=== PATIENT | male | born 1960 | race Caucasian/White ===

== ENCOUNTER 2023-04-07 07:37 | Outpatient (RCR) | payer OTHER, SELFPAY | END 2023-04-07 23:59 | disposition home or self-care (01) | LOC: RST 07:37 | PROVIDERS: ATTENDING PHYSICIAN Otolaryngology; PRIMARYCARE PHYSICIAN Family Medicine | DX: J18.9 Pneumonia, unspecified organism (principal); R13.19 Other dysphagia; J44.9 Chronic obstructive pulmonary disease, unspecified; R13.12 Dysphagia, oropharyngeal phase | CPT/HCPCS: 92610 ==

== ENCOUNTER → 2023-04-15 08:01 | Outpatient (REF) | payer OTHER, SELFPAY | LOC: DHCBC MAIN 08:01 | PROVIDERS: ATTENDING PHYSICIAN Internal Medicine Cardiovascular Disease; FAMILY PHYSICIAN Family Medicine | DX: R07.9 Chest pain, unspecified (principal); R06.02 Shortness of breath; I77.810 Thoracic aortic ectasia | CPT/HCPCS: 93306 ==

== ENCOUNTER 2023-05-11 20:02 | Emergency (ER) | payer OTHER, SELFPAY ==
[2023-05-11 20:03] VITALS: BP 160/92
[2023-05-11] MEDS: ZOFRAN ODT (ORALLY DISINTEGRATING) 4 MG PO (20:08)
[2023-05-11 20:22] LABS: % Basophils 0.7 % (0-2); % Immature Granulocytes 0.7 % (0-0.5); % Lymphocytes 21.8 % (20.5-51.1); % Neutrophils 67.8 % (42.2-75.2); Absolute Basophils 0.1 10^3/uL (0-0.2); Absolute Eosinophils 0.1 10^3/uL (0-0.7); Absolute Immature Granulocytes 0.1 10^3/uL (0-0.05); Absolute Lymphocytes 2.5 10^3/uL (1.2-3.4); Absolute Monocytes 0.9 10^3/uL (0.1-0.6); Absolute Neutrophils 7.7 10^3/uL (1.4-6.5); Hematocrit 43.8 % (39.0-52.0); Hemoglobin 14.8 g/dL (13.0-18.0); Mean Corp Hgb Conc. 33.8 g/dL (33.0-37.0); Mean Corpuscular Hgb 31.7 pg (27.0-31.0); Mean Corpuscular Volume 93.8 fL (80.0-94.0); Mean Platelet Volume 9.9 fL (7.4-10.4); Nucleated Red Blood Cells % 0 % (-); Platelet Count 231 10^3/uL (130-400); Red Blood Cell Count 4.67 10^6/uL (4.70-6.10); Red Cell Dist. Width 13.8 % (11.5-14.5); White Blood Cell Count 11.4 10^3/uL (4.8-10.8)
[2023-05-11 20:47] LABS: Blood Urea Nitrogen 17 mg/dl (9-20); Calcium 9.5 mg/dl (8.4-10.2); Carbon Dioxide 27 mmol/L (22-30); Chloride 101 mmol/L (98-107); Glucose 113 mg/dl (70-99); Lipase 915 U/L (23-300); Sodium 135 mmol/L (135-145); eGFR > 60.00
[2023-05-11 21:35] LABS: Potassium 4.2 mmol/L (3.5-5.1)
--- NOTE | 2023-05-11 22:21 | ED.GENMED ---
History of Present Illness
<ALANNAH Lakhani - Last Filed: 05/11/23 22:34>
General
Chief Complaint: Abdominal Pain
Source: patient
Exam Limitations: none
Time Seen by Provider: 05/11/23 22:09
Nursing documentation reviewed up to this point in time: agreed with
Travel History
Have you had any contact with someone who has COVID-19?: No
Do you have any symptoms of coronavirus? Fever > 100 degrees, chills, cough, shortness of breath, sore throat, loss of taste or smell, muscle aches, or headache?: No
History of Present Illness
History of Present Illness:
63 y/o M presents to ED complaining of abdominal pain that began at 1700 and last about 3 hours. Patient states the pain has now resolved. He reported the pain was constant in the center of his abdomen and was rated 10/10. He reports the pain
started after he had dinner which consisted of enoc stew from [place]. Patient reported the pain was so intense he was not able to take deep breaths. The pain did not radiate anywhere. Patient also reported associated nausea and 1 episode of foaming
white vomit. He reports both have since resolved. Patient last BM this afternoon. Patient denies fever, chills, constipation, diarrhea, chest pain, back pain, or palpitations. Patient has history of extensive GI surgeries. Last surgery a few years
ago per .
If applicable-neuro sx onset
Onset of symptoms known: Yes
Date of onset of symptoms: 05/11/23
Time of onset of symptoms: 17:00
Past History
<ALANNAH Lakhani - Last Filed: 05/11/23 22:34>
Past History
ED Past Medical History: Asthma, COPD, HTN, Hypothyroidism, Psychiatric, Other (Chronic back pain/narcotic dependence, hypoxic respiratory failure, obstructive sleep apnea, PNA, Hypoglycemia) and Other (chronic CUCA, on triple antibiotic tx)
ED Past Surgical History: Bowel resection (, 1976 with colostomy and then reversal, gastric bypass 2005), Orthopedic (Back surgery, right leg suzette placed) and Other (Gastric bypass 2005, multiple hernia repairs, Lung Hernia)
Social History
Tobacco: Former smoker
Alcohol: Former
Drug: None
Personal:
Living: with family
Employment: Disabled
Family History
Family History: Other (Noncontributory)
Review of Systems
<ALANNAH Lakhani - Last Filed: 05/11/23 22:34>
Review of Systems
All Other Systems: ROS reviewed and negative except as documented in HPI and ROS
Constitutional: Reports no symptoms
EENT: Reports no symptoms
Respiratory: Reports no symptoms
Cardiac: Reports no symptoms
ABD/GI: Reports abdominal pain, nausea and vomiting
: Reports no symptoms
Musculoskeletal: Reports no symptoms
Skin: Reports no symptoms
Neurological: Reports no symptoms
Endocrine: Reports no symptoms
Hematologic/Lymphatic: Reports no symptoms
Psychiatric: Reports no symptoms
Phy Exam
<ALANNAH Lakhani - Last Filed: 05/11/23 22:34>
General Physical Exam
General Presentation: well appearing and no apparent distress
General age: appears stated age
General Skin: warm and dry
General Habitus: normal
General Mental: alert
General Hydration: appears well hydrated
ENT Exam
ENT Exam: EOMI, pharynx normal and neck supple
Cardiovascular Exam
Cardiovascular Exam: regular rate/rhythm, no edema, no gallop and no murmur
Pulmonary Exam
Pulmonary Exam: lungs clear, no respiratory distress, no rales, no crackles and no rhonchi
Gastrointestinal Exam
Gastrointestinal Exam: normal bowel sounds, non tender, soft, non distended, no cva tenderness and surgical scar (surgical scar in center of abdomen secondary to hernia, R side with pain pump for back pain)
Neurological Exam
Neurological Exam: alert and oriented x3
Skin Exam
Skin Exam: normal color, warm/dry and no rash
Psychiatric Exam
Psychiatric Exam: normal mood/affect
Course
<SofiaALANNAH Reis - Last Filed: 05/11/23 22:34>
Orders/Labs/Results
Orders:
Orders
05/11/23 20:07
Ondansetron Orally Disint [Zofran Odt (Orally Disintegrating)] 4 mg .ROUTE .STK-MED ONE
05/11/23 20:08
Ondansetron Orally Disint [Zofran Odt (Orally Disintegrating)] 4 mg PO NOW STA
05/11/23 20:16
Basic Metabolic Panel Urgent
Complete Blood Count/With Diff Urgent
Lipase Urgent
05/11/23 21:16
Lzmoa-Kmas-Zwdvxyn Urgent
Potassium Urgent
05/11/23 22:40
US Abdomen Complete/Upper Urgent
Comment:
Reason For Exam: acute upper abd pain N/V, elevated lipase
05/11/23 23:38
Add On- LAB Urgent
Tests Added?: LFT's
Abnormal Lab Results
05/11/23
20:16
WBC 11.4 H 10^3/uL
(4.8-10.8)
RBC 4.67 L 10^6/uL
(4.70-6.10)
MCH 31.7 H pg
(27.0-31.0)
Abs Immat Gran (auto) 0.1 H 10^3/uL
(0-0.05)
Absolute Neuts (auto) 7.7 H 10^3/uL
(1.4-6.5)
Absolute Monos (auto) 0.9 H 10^3/uL
(0.1-0.6)
Immature Gran % 0.7 H %
(0-0.5)
Glucose 113 H mg/dl
(70-99)
Lipase 915 H U/L
(23-300)
05/11/23 20:16
05/11/23 21:16
Vital Signs
Initial and Last Documented VS:
Initial Vital Signs
Pulse Resp BP Pulse Ox
66 22 160/92 95
05/11/23 20:03 05/11/23 20:03 05/11/23 20:03 05/11/23 20:03
Last Documented Vital Signs
Temp Pulse Resp BP Pulse Ox
97.6 F 63 18 141/75 92
05/11/23 21:09 05/12/23 01:18 05/12/23 01:18 05/12/23 01:18 05/12/23 01:18
<Tiffany Kan, DO - Last Filed: 05/12/23 01:31>
Orders/Labs/Results
Orders:
Orders
05/11/23 20:07
Ondansetron Orally Disint [Zofran Odt (Orally Disintegrating)] 4 mg .ROUTE .STK-MED ONE
05/11/23 20:08
Ondansetron Orally Disint [Zofran Odt (Orally Disintegrating)] 4 mg PO NOW STA
05/11/23 20:16
Basic Metabolic Panel Urgent
Complete Blood Count/With Diff Urgent
Lipase Urgent
05/11/23 21:16
Wtyhb-Qmeq-Hzqbmak Urgent
Potassium Urgent
05/11/23 22:40
US Abdomen Complete/Upper Urgent
Comment:
Reason For Exam: acute upper abd pain N/V, elevated lipase
05/11/23 23:38
Add On- LAB Urgent
Tests Added?: LFT's
Abnormal Lab Results
05/11/23
20:16
WBC 11.4 H 10^3/uL
(4.8-10.8)
RBC 4.67 L 10^6/uL
(4.70-6.10)
MCH 31.7 H pg
(27.0-31.0)
Abs Immat Gran (auto) 0.1 H 10^3/uL
(0-0.05)
Absolute Neuts (auto) 7.7 H 10^3/uL
(1.4-6.5)
Absolute Monos (auto) 0.9 H 10^3/uL
(0.1-0.6)
Immature Gran % 0.7 H %
(0-0.5)
Glucose 113 H mg/dl
(70-99)
Lipase 915 H U/L
(23-300)
05/11/23 20:16
05/11/23 21:16
Vital Signs
Initial and Last Documented VS:
Initial Vital Signs
Pulse Resp BP Pulse Ox
66 22 160/92 95
05/11/23 20:03 05/11/23 20:03 05/11/23 20:03 05/11/23 20:03
Last Documented Vital Signs
Temp Pulse Resp BP Pulse Ox
97.6 F 63 18 141/75 92
05/11/23 21:09 05/12/23 01:18 05/12/23 01:18 05/12/23 01:18 05/12/23 01:18
<ALANNAH Lakhani - Last Filed: 05/11/23 22:34>
MDM/Problems Addressed
Differential Diagnosis Includes:
Pancreatitis
Viral
SBO
Appendicitis
Diverticulitis
MDM/Problems Addressed:
63 y/o with 10/10 abdominal pain and associated nausea and vomiting that has now resolved. Bloodwork ordered. Lipase elevated on bloodwork, concerning for Pancreatitis.
<Tiffany Kan DO - Last Filed: 05/12/23 01:31>
*Radiology
Radiology exam reviewed: radiology read reviewed
*Pulse Oximetry
Patient hypoxic: no
*Critical Care Note
Total Time (30-74mins, 75-104mins- exclusive of procedures): Not Applicable
ED Attending Note
<ALANNAH Lakhani - Last Filed: 05/11/23 22:34>
-
Portions of this chart may have been created with voice recognition software.� Occasional wrong word or��sound alike� substitutions may have occurred due to the inherent limitations of voice recognition software.
<Tiffany Kan DO - Last Filed: 05/12/23 01:31>
ED Attending Note
Patient seen and examined by attending physician: Yes
I performed the substantive portion of visit, reviewed & personally made and approve the management plan that is documented in note by myself or JULIO.: Yes
I performed a history and physical exam of patient and discussed management with resident, I reviewed resident's note and agree with documented findings and plan of care.: Yes
ED Attending Note:
This is a 63-year-old gentleman who has history of COPD, ex-smoker, hypertension, previous hospitalization January 25 to February 05 for treatment of multilobar pneumonia, exacerbation of COPD, recent COVID 19 infection.
He presents with abrupt onset of severe upper abdominal pain, right lateral flank pain that began approximately 1 hour after consuming a somewhat fatty meal for dinner. Upper abdominal pain severe in nature accompanied with nausea, dry heaves,
restlessness. He does admit to similar but less severe pain occurring approximately 3 months ago as well as similar less severe discomfort 3 to 4 months prior to that episode.
Tonight's episode however quite severe in nature. He was given IV Zofran upon arrival to the ED.
Abdominal pain and nausea have since resolved, patient feeling well and is eager to be discharged to home.
He does have history of multiple previous abdominal surgeries, history of chronic low back pain, spinal cord stimulator with battery pack right upper quadrant.
He notes for the most part he and his have been consuming healthier meals more recently but occasionally eats larger, fatty meals such as tonight.
GENERAL: 63-year-old gentleman appears his stated age, bright and alert, pleasant, easily communicative and in no acute distress. is accompanying.
EYE: anicteric
NECK: Supple, nontender, no meningismus, no significant adenopathy.
ENT: oral mucosa is moist. No rhinorrhea.
CARDIAC: Regular rate and rhythm. no murmur.
LUNGS: Clear breath sounds bilaterally, no acute respiratory distress, no wheezes/rales/rhonchi
ABDOMEN: Soft, nondistended, without focal tenderness, there is a large ventral diastasis recti that is soft and nontender, no r/g, no cvat. normoactive BS.
NEUROLOGICAL: Alert and oriented x3, no focal neuro deficits.
SKIN: Warm and dry, normal color, skin intact. No rash.
MUSCULOSKELETAL: No C/C/E. peripheral pulses are full and equal b/l. No palpable tenderness.
PSYCH: Normal and appropriate interaction.
History and exam most concerning for acute biliary colic which has since resolved, other consideration is partial small bowel obstruction which has since resolved, acute gastritis, pancreatitis, gastroenteritis. He had no chest pain, no shortness
of breath, no cough.
It is reassuring that pain has completely resolved.
Labs are remarkable for minimally elevated white blood cell count of 11.4.
Mild to moderate elevation of lipase of 915 concerning for acute pancreatitis versus gallstone pancreatitis. Again reassuring that patient is pain-free and comfortable. No appreciable abdominal tenderness on exam.
BMP is unremarkable but LFTs were not initially ordered. Will add to blood in the lab.
Will check abdominal ultrasound.
05/12/2023 0127 AM
Patient tolerating clear liquids without return of abdominal pain.
Ultrasound shows moderately distended gallbladder but no definitive gallstones nor signs of cholecystitis. Common bile duct measures 5.8 mm.
LFTs within normal limits.
I do suspect patient suffered an episode of biliary colic with mild pancreatitis.
Reassuring that he has had no return of abdominal pain and abdomen remains soft and nontender.
Will discharge to home with recommendations to maintain a strict low-fat diet.
Follow-up with PCP as well as general surgery.
Return precautions discussed.
Discharge Plan
Departure
Patient Disposition: Home (Routine Discharge)
Date of Disposition: 05/12/23
Time of Disposition: 01:23
Patient with high blood pressure during this ER visit?: No
Condition: Good
Discharge Problem:
Acute biliary colic, Mild pancreatitis-self limiting
Instructions: Low Cholesterol, Saturated Fat, and Trans Fat Diet , Gallstones (DC)
Prescriptions:
No Action
montelukast 10 MG tablet
10 mg PO QPM
theophylline 300 MG tablet extended release 12 hr
300 mg PO QPM
lamotrigine 100 MG tablet
300 mg PO BID
Hold Instructions: hold while on levofloxacin
prazosin 1 MG capsule
1 mg PO TID
levothyroxine 125 MCG tablet
125 mcg PO DAILY AT 0700
sertraline 100 MG tablet
200 mg PO DAILY
quetiapine [Seroquel] 400 MG tablet
800 mg PO HS
Hold Instructions: hold while on levofloxacin
rosuvastatin 10 MG tablet
10 mg PO QPM
trazodone 50 mg Tablet
50 mg PO QPM
aspirin 81 mg Tablet,Delayed Release (Dr/Ec)
81 mg PO DAILY
ferrous sulfate 325 mg (65 mg iron) Tablet
325 mg PO BID
buspirone 10 mg Tablet
20 mg PO TID
nitroglycerin 0.4 mg Tablet, Sublingual
0.4 mg SUBLINGUAL [id number] PRN (Reason: chest pain)
lisinopril 5 mg Tablet
5 mg PO DAILY
albuterol sulfate [Ventolin HFA] 90 mcg/actuation Hfa Aerosol Inhaler
2 puff INHALATION R Q4HPRN PRN (Reason: sob)
bupropion HCl [Wellbutrin XL] 300 mg Tablet Extended Release 24 Hr
300 mg PO DAILY
budesonide-formoterol [Symbicort] 160-4.5 mcg/actuation Hfa Aerosol Inhaler
2 puff INHALATION R BID
guaifenesin [Mucinex] 1,200 mg Tablet Extended Release 12hr
1,200 mg PO DAILY
cholecalciferol (vitamin D3) [Vitamin D3] 50 mcg (2,000 unit) Tablet
50 mcg PO DAILY
Uadpgwynr-Xaxeblffqx-Vmdycdmii
0 mcg epidural .VIA PUMP
Patient Comments:
01/25/2023: 12/27/22 pump gets filled every six weeks at [facility] in [place] . Patient is unaware of dose.
acyclovir 5 % ointment
1 applic topical 5/D PRN (Reason: cold sores)
Rx Instructions:
take for 5 days
nystatin 100,000 unit/mL Suspension
5 ml PO QID Qty: 60 0RF
Rx Instructions:
for 4 days
amoxicillin-pot clavulanate 875-125 mg Tablet
1 tab PO Q12 Qty: 7 0RF
Rx Instructions:
till 02/07
acetaminophen 325 mg Tablet
650 mg PO Q4HPRN PRN (Reason: mild pain /fever >100.4) Qty: 1 0RF
Rx Instructions:
buy over the counter
pantoprazole 40 mg Tablet,Delayed Release (Dr/Ec)
40 mg PO DAILY Qty: 30 0RF
Rx Instructions:
while on high dose of steroids
prednisone 10 mg tablet
10 mg PO DIRECTED Qty: 60 0RF
Rx Instructions:
50mgz daiy*1 week
taper by 10mg every week
till you come down to 20mg daily
Referrals:
Pk Weir MD [Family Provider] - Call in 1-3 days for appt
Paxton Barth MD [Active] - Call in 1-3 days for appt
Activity Restrictions/Additional Instructions:
Your ultrasound shows a distended gallbladder but no definitive evidence of gallstones nor infected/inflamed gallbladder. However your history is quite concerning for acute gallbladder attack/biliary colic and labs show mildly elevated lipase
concerning for mild pancreatitis. It is reassuring that pain and symptoms have resolved.
We recommend you adhere to a strict low-fat diet.
Follow-up with your primary care physician and recommend follow-up with general surgeon as well.
Interventions
Interventions:
*Risk Screen - Suicide Last Done: 05/11/23 20:03
*General Assessment Last Done: 05/11/23 21:14
*Neglect/Abuse Screening Last Done: 05/11/23 20:03
*ED COVID-19 Vaccine History Last Done: 05/11/23 21:14
VX-Vhhivy-Bhlyyhobty Assessment Last Done: 05/11/23 21:36
[2023-05-12 01:15] LABS: ALT (SGPT) 31 U/L (0-50); AST (SGOT) 36 U/L (17-59); Albumin 4.7 g/dl (3.5-5.0); Alkaline Phosphatase 95 U/L (38-126); Direct Bilirubin 0.2 mg/dl (0.0-0.4); Total Bilirubin 0.5 mg/dl (0.2-1.3); Total Protein 7.3 g/dl (6.3-8.2)
[2023-05-12 01:18] VITALS: BP 141/75
== END 2023-05-12 01:37 | disposition home or self-care (01) ==
LOC: EMR 20:02
PROVIDERS: Emergency Medicine; EMERGENCY PHYSICIAN Emergency Medicine; FAMILY PHYSICIAN Family Medicine
DX: R10.9 Unspecified abdominal pain (principal); J45.909 Unspecified asthma, uncomplicated; J44.89 Other specified chronic obstructive pulmonary disease; I10 Essential (primary) hypertension; E03.9 Hypothyroidism, unspecified; G47.33 Obstructive sleep apnea (adult) (pediatric); G89.29 Other chronic pain; K80.50 Calculus of bile duct without cholangitis or cholecystitis without obstruction; K85.90 Acute pancreatitis without necrosis or infection, unspecified; Z87.891 Personal history of nicotine dependence; Z98.84 Bariatric surgery status
CPT/HCPCS: 99284; 76700; 80048; 80053; 80076; 82248; 83690; 84132; 85025

== ENCOUNTER → 2023-06-10 07:34 | Outpatient (REF) | payer OTHER, SELFPAY | LOC: RAD 07:34 | PROVIDERS: ATTENDING PHYSICIAN Physical Medicine & Rehabilitation; FAMILY PHYSICIAN Family Medicine; REFERRING PHYSICIAN Physician Assistant Medical | DX: M96.1 Postlaminectomy syndrome, not elsewhere classified (principal) | CPT/HCPCS: 72131 ==

== ENCOUNTER 2023-09-03 06:16 | Day surgery (SDC) | payer OTHER, SELFPAY ==
[2023-09-03 08:50] VITALS: BMI 42.2
[2023-09-03 08:51] VITALS: BP 141/69
[2023-09-03 09:02] VITALS: BMI 42.2
[2023-09-03 10:17] VITALS: BP 142/75
[2023-09-03 10:25] VITALS: BP 124/80
[2023-09-03 10:34] VITALS: BP 151/83
== END 2023-09-03 10:45 | disposition home or self-care (01) ==
LOC: GI 06:16
PROVIDERS: ATTENDING PHYSICIAN Internal Medicine
DX: Z12.11 Encounter for screening for malignant neoplasm of colon (principal); D12.2 Benign neoplasm of ascending colon; D12.3 Benign neoplasm of transverse colon; K62.1 Rectal polyp; K64.9 Unspecified hemorrhoids; Z86.010 Personal history of colon polyps
CPT/HCPCS: 45385; 45381; 88305

== ENCOUNTER → 2024-01-06 10:55 | Outpatient (REF) | payer OTHER, SELFPAY | LOC: RAD 10:55 | PROVIDERS: ATTENDING PHYSICIAN Physical Medicine & Rehabilitation; FAMILY PHYSICIAN Family Medicine | DX: M54.50 Low back pain, unspecified (principal) | CPT/HCPCS: 72072; 72114 ==

== ENCOUNTER → 2024-02-13 08:54 | Outpatient (REF) | payer OTHER, SELFPAY | LOC: RAD 08:54 | PROVIDERS: ATTENDING PHYSICIAN Physician Assistant Medical | DX: J44.9 Chronic obstructive pulmonary disease, unspecified (principal); R63.4 Abnormal weight loss | CPT/HCPCS: 71046 ==

== ENCOUNTER 2024-03-07 10:05 | Emergency (ER) | payer OTHER, SELFPAY ==
[2024-03-07 10:28] VITALS: BP 120/82
--- NOTE | 2024-03-07 12:44 | ED.MUSCINJ ---
HPI-Injury
General
Chief Complaint: Fall
Source: patient and spouse
Exam Limitations: none
Time Seen by Provider: 03/07/24 12:29
Nursing documentation reviewed up to this point in time: agreed with
History of Present Illness-Injury
Initial Injury comments:
63 yo male w h/o chronic back pain followed by pain management, has pump for Dilaudid, Klonopin and Bupivicaine, COPD on Prednisone 20 mg daily, Home O2, fell 03/03 onto right shoulder, didn't start to hurt until 2 days later and pain has been
increasing since. Can hardly move the arm due to pain. Denies any other injury.
Past History
Past History
ED Past Medical History: Asthma, COPD, HTN, Hypothyroidism, Psychiatric, Other (Chronic back pain/narcotic dependence, hypoxic respiratory failure, obstructive sleep apnea, PNA, Hypoglycemia) and Other (chronic CUCA, on triple antibiotic tx)
ED Past Surgical History: Bowel resection (Posttraumatic, 1976 with colostomy and then reversal, gastric bypass 2005), Orthopedic (Back surgery, right leg suzette placed) and Other (Gastric bypass 2005, multiple hernia repairs, Lung Hernia)
Social History
Tobacco: Former smoker
Alcohol: Former
Drug: None
Personal:
Living: with family
Employment: Disabled
Family History
Family History: Other (Noncontributory)
Review of Systems
Review of Systems
Allergies reviewed?: Yes
All Other Systems: ROS reviewed and negative except as documented in HPI and ROS
Musculoskeletal: Reports back pain (chronic) and other (Right shoulder pain)
Skin: Reports no symptoms
Neurological: Denies weakness or numbness
Phy Exam
Physical Exam
Physical Exam:
PHYSICAL EXAMINATION:
General: no apparent distress, not acutely ill
Neuro: alert and oriented.
Psychiatric: well kept. interactive and cooperative
Musculoskeletal: Tender to palpate about the right humeral head. Significantly limited range of motion due to pain. Distal neurovascular intact. Moves with ease
Skin: Warm, pink.
Injury Course
Orders/Labs/Results
Orders:
Orders
03/07/24 10:30
CR Clavicle - Right Complete Urgent
Comment:
Reason For Exam: fall
CR Shoulder, Trauma - Right Urgent
Comment:
Reason For Exam: fall
MDM/Problems Addressed
Differential Diagnosis Includes:
Bursitis, tendinitis, fracture
MDM/Problems Addressed:
63 yo male w h/o chronic back pain followed by pain management, has pump for Dilaudid, Klonopin and Bupivicaine, COPD on Prednisone 20 mg daily, Home O2, fell 03/03 onto right shoulder, didn't start to hurt until 2 days later and pain has been
increasing since. Can hardly move the arm due to pain. Denies any other injury.
Right shoulder and right clavicle injuries show nothing acute. DJD is present. Tiny calcification lateral aspect of right humeral head.
Patient already on chronic pain meds. Instructed to take Tylenol as needed, alternate heat and cold and stick with what feels better, increase prednisone to 50 mg daily for 5 days then go back to the 20 mg daily
Follow-up with orthopedics if not improving
*Critical Care Note
Total Time (30-74mins, 75-104mins- exclusive of procedures): Not Applicable
ED Attending Note
-
Portions of this chart may have been created with voice recognition software.� Occasional wrong word or��sound alike� substitutions may have occurred due to the inherent limitations of voice recognition software.
Discharge Plan
Departure
Patient Disposition: Home (Routine Discharge)
Date of Disposition: 03/07/24
Time of Disposition: 12:20
Patient with high blood pressure during this ER visit?: No
Condition: Good
Discharge Problem:
Acute pain of right shoulder due to trauma, Fall from slip, trip, or stumble
Instructions: Calcific Tendinopathy of the Shoulder (DC), Rotator Cuff Injury (DC), Shoulder pain - ED discharge instructions
Prescriptions:
New
prednisone 50 mg tablet
50 mg PO DAILY Qty: 5 0RF
No Action
montelukast 10 MG tablet
10 mg PO QPM
theophylline 300 MG tablet extended release 12 hr
300 mg PO QPM
lamotrigine 100 MG tablet
300 mg PO BID
prazosin 1 MG capsule
1 mg PO TID
levothyroxine 125 MCG tablet
125 mcg PO DAILY AT 0700
sertraline 100 MG tablet
200 mg PO DAILY
quetiapine [Seroquel] 400 MG tablet
800 mg PO HS
rosuvastatin 10 MG tablet
10 mg PO QPM
trazodone 50 mg Tablet
50 mg PO QPM
aspirin 81 mg Tablet,Delayed Release (Dr/Ec)
81 mg PO DAILY
ferrous sulfate 325 mg (65 mg iron) Tablet
325 mg PO BID
buspirone 10 mg Tablet
20 mg PO TID
nitroglycerin 0.4 mg Tablet, Sublingual
0.4 mg SUBLINGUAL [id number] PRN (Reason: chest pain)
lisinopril 5 mg Tablet
5 mg PO DAILY
albuterol sulfate [Ventolin HFA] 90 mcg/actuation Hfa Aerosol Inhaler
2 puff INHALATION R Q4HPRN PRN (Reason: sob)
bupropion HCl [Wellbutrin XL] 300 mg Tablet Extended Release 24 Hr
300 mg PO DAILY
budesonide-formoterol [Symbicort] 160-4.5 mcg/actuation Hfa Aerosol Inhaler
2 puff INHALATION R BID
guaifenesin [Mucinex] 1,200 mg Tablet Extended Release 12hr
1,200 mg PO DAILY
cholecalciferol (vitamin D3) [Vitamin D3] 50 mcg (2,000 unit) Tablet
50 mcg PO DAILY
Sibxhzwrg-Gtfkjyclgl-Huyslhjnp
0 mcg epidural .VIA PUMP
Patient Comments:
01/25/2023: 12/27/22 pump gets filled every six weeks at [facility] in [place] . Patient is unaware of dose.
acyclovir 5 % ointment
1 applic topical 5/D PRN (Reason: cold sores)
Rx Instructions:
take for 5 days
acetaminophen 325 mg Tablet
650 mg PO Q4HPRN PRN (Reason: mild pain /fever >100.4) Qty: 1 0RF
Rx Instructions:
buy over the counter
pantoprazole 40 mg Tablet,Delayed Release (Dr/Ec)
40 mg PO DAILY Qty: 30 0RF
Rx Instructions:
while on high dose of steroids
prednisone 10 mg tablet
10 mg PO DIRECTED Qty: 60 0RF
Rx Instructions:
50mgz daiy*1 week
taper by 10mg every week
till you come down to 20mg daily
Referrals:
Jimmy Schilling MD [Active] - Next open appointment
Activity Restrictions/Additional Instructions:
As we discussed, I sent a prescription to your pharmacy for Prednisone 50 mg daily for the next 5 days, then go back to your 20 mg daily as usual.
See the orthopedic doctor if not improved within the next 1-2 weeks.
Move the shoulder more and more as comfort permits to avoid a frozen shoulder.
Warm compress alternating with cold compress then stick with whichever feels better.
Tylenol 1000 mg every 8 hours as needed for pain.
Interventions
Interventions:
*Risk Screen - Suicide Last Done: 03/07/24 10:29
*General Assessment Last Done: 03/07/24 10:28
*ED COVID-19 Vaccine History Last Done: 03/07/24 10:28
*Nursing Disposition Last Done: 03/07/24 14:03
Discharge Date and Time
Discharge Date/Time: 03/07/24 14:03
Print Language: FAROESE
== END 2024-03-07 14:03 | disposition home or self-care (01) ==
LOC: EMR 10:05
PROVIDERS: EMERGENCY PHYSICIAN Emergency Medicine; FAMILY PHYSICIAN Nurse Practitioner Family
DX: M25.511 Pain in right shoulder (principal); W01.0XXA Fall on same level from slipping, tripping and stumbling without subsequent striking against object, initial encounter; J44.89 Other specified chronic obstructive pulmonary disease; I10 Essential (primary) hypertension; E03.9 Hypothyroidism, unspecified; F11.20 Opioid dependence, uncomplicated; M19.011 Primary osteoarthritis, right shoulder; G47.33 Obstructive sleep apnea (adult) (pediatric); Z98.84 Bariatric surgery status
CPT/HCPCS: 99283; 73000; 73030

== ENCOUNTER → 2024-05-03 09:50 | Outpatient (REF) | payer OTHER, SELFPAY | LOC: HWRAD 09:50 | PROVIDERS: ATTENDING PHYSICIAN Orthopaedic Surgery Sports Medicine; FAMILY PHYSICIAN Nurse Practitioner Family | DX: M19.011 Primary osteoarthritis, right shoulder (principal) | CPT/HCPCS: 73200 ==

== ENCOUNTER 2024-08-16 15:57 | Emergency (ER) | payer OTHER, SELFPAY ==
[2024-08-16 16:03] VITALS: BP 170/83
[2024-08-16 17:06] VITALS: BMI 26.6
[2024-08-16 17:38] VITALS: BP 154/87
--- NOTE | 2024-08-16 17:43 | ED.GENMED ---
History of Present Illness
<Efren Molina PA-C - Last Filed: 08/16/24 19:45>
General
Chief Complaint: Fall
Time Seen by Provider: 08/16/24 17:22
History of Present Illness
History of Present Illness:
Note:
CHIEF COMPLAINT(S)
Fall with subsequent injuries, including potential chest trauma and skin tears.
HISTORY OF PRESENT ILLNESS
The patient is a 64-year-old male with a significant fall incident reported. The patient described an accident where he went off a angie while on a property, falling approximately five to ten feet before hitting the ground and rolling another 20
feet. He initially sought medical evaluation but was unable to be seen at a local medical division of [facility], los to an urgent care setting.
The patient did not believe he struck his head during the fall but reported a headache which is new for him and described skin tears primarily on his right forearm, upper arm, and left lower leg. The patient is currently on the anticoagulant
medication Eliquis, which he started in June following a total shoulder replacement when atrial fibrillation was detected.
On physical exam, there is significant swelling of the right chest wall, raising concerns for potential rib fractures and pneumothorax. The patient is experiencing pain in the chest area, worsened by inspiration. There are diminished breath sounds
on the right side compared to the left, which could indicate a pneumothorax, a potentially serious condition requiring further intervention.
The patient does not report any head trauma or neck spine tenderness. There is a history of chronic obstructive pulmonary disease (COPD) which, along with an elevated right diaphragm, may increase the risk of pneumothorax. The patient confirmed
being on Dilaudid via a pain pump, situated in the right lower quadrant of the abdomen, and reports no hip or groin pain, with the ability to walk.
The planned workup includes comprehensive computed tomography scans, given the falls severity, anticoagulation therapy, and presenting symptoms, to rule out any serious injury, including intracranial bleeding and pneumothorax. His tetanus
vaccination status will also be updated today.
CHRONIC MEDICAL CONDITIONS SIGNIFICANTLY AFFECTING CARE
- Chronic obstructive pulmonary disease (COPD)
- Atrial fibrillation (on Eliquis anticoagulation)
- History of total shoulder replacement
PHYSICAL EXAM
Nursing notes reviewed and vital signs reviewed.
- Head and Neck: No cranial trauma observed. No midline C/T/L spine tenderness
- Lungs: Diminished breath sounds on the right side, noticeable swelling on the right posterior chest wall.
- Musculoskeletal: Skin tears noted on the right forearm, right upper arm, and left lower leg. No hip tenderness bilaterally.
- Abdominal: No tenderness or distention present; palpable pain pump noted in the right lower quadrant. Soft reducible large ventral hernia noted
- Neurological: No signs of midline cervical spine, thoracic, or lumbar tenderness.
PLAN
1. Conduct trauma scans including head, chest, and abdomen to evaluate for internal injuries, considering his use of blood thinners.
2. Administer tetanus vaccine update due to the presence of skin tears.
3. Monitor closely for any signs of pneumothorax and address accordingly.
4. Provide appropriate wound care management for skin tears.
DIFFERENTIAL DIAGNOSIS
The Differential Diagnosis includes, in no particular order and is not limited to:
1. Pneumothorax
2. Rib fractures
3. Internal bleeding
4. Intracranial hemorrhage
5. Soft tissue contusions
6. Abdominal injury
7. Pulmonary contusion
8. Hemothorax
9. Compartment syndrome
10. Myocardial contusion
CARE-UPDATE
08/16/24 - 19:[address] reports indicate multiple rib fractures: second through ninth lateral ribs affected, with repetition in some numbering indicating likely emphasis on extent; no abnormalities in head or cervical scans. Noteworthy findings include small
right pleural effusion and parenchymal contusion suggestive of a potential small hemothorax. Currently, the patient remains clinically stable, and routine chest X-rays are not warranted at this stage.
CARE-UPDATE
08/16/24 - 19:29
Attempted contact with [facility]; call redirected to voicemail. Will retry and send [employer] message for consultation.
CARE-UPDATE
08/16/24 - 19:37
Review[address] case [address] Dr. Carreno, trauma specialist at [facility]. Patient accepted for transfer. Patient remains clinically stable.
Disposition:
DIAGNOSIS
- Rib fractures (ICD-10: S2\\2.4)
- Pneumothorax, unspecified (ICD-10: J93.9)
- Pulmonary contusion (ICD-10: S27.32X)
SUMMARY OF ENCOUNTER
The patient, a 64-year-old male on anticoagulation therapy due to atrial fibrillation, experienced a fall and rolled down an incline about 20 feet the day prior. Initially unable to be evaluated at a non-hospital facility, he presented with swelling
and bruising over the right chest wall suggestive of rib fractures and diminished breath sounds indicative of a potential pneumothorax. Trauma scans revealed multiple rib fractures, a small pulmonary contusion, and pleural effusion suggestive of
hemothorax due to the anticoagulation therapy. The patient was clinically stable without the need for a chest tube.
DISPOSITION
Transfer
ASSESSMENT
The patient presented with multiple complications from his fall, including rib fractures, pneumothorax, and pulmonary contusion, which are exacerbated by his anticoagulation therapy. The presence of pleural effusion in conjunction with his ailments
required further care and monitoring.
MANAGEMENT OF THE PATIENTS CARE WAS DISCUSSED WITH
The case was discussed with a trauma attending at [facility] via telephone, and the patient was accepted for transfer for further management.
PLAN
1. Transfer the patient to [facility] for trauma management.
2. Continue monitoring for clinical stability.
3. No immediate intervention necessary for pleural effusion or pneumothorax given the patients current stability.
INDEPENDENT INTERPRETATION OF TESTS
- CT scan indicates multiple rib fractures from the second through ninth ribs, with a small pulmonary contusion and pleural effusion suggesting a possible small hemothorax.
- head and cervical scans indicates no intracranial or spinal abnormalities.
MEDICAL DECISION MAKING
Number and Complexity of Problems Addressed:
The encounter addressed multiple acute issues possibly exacerbated by anticoagulation therapy, including rib fractures, pneumothorax, and potential hemothorax. The complexity lies in the management due to potential risks associated with
anticoagulation.
Data:
The decision for trauma scans was crucial in evaluating the extent of injuries and ensuring no intracranial bleeding or severe internal injuries were present. The findings significantly informed the decision-making process to transfer the patient
for specialized trauma care.
Risk:
The risk assessment considered the patients anticoagulation therapy when addressing the complications from the fall, such as the decision against immediate insertion of a chest tube despite the pleural effusion, pending further trauma evaluation at
[facility].
Past History
<Efren Molina PA-C - Last Filed: 08/16/24 19:45>
Past History
ED Past Medical History: Asthma, COPD, HTN, Hypothyroidism, Psychiatric, Other (Chronic back pain/narcotic dependence, hypoxic respiratory failure, obstructive sleep apnea, PNA, Hypoglycemia) and Other (chronic CUCA, on triple antibiotic tx)
ED Past Surgical History: Bowel resection (Posttraumatic, 1976 with colostomy and then reversal, gastric bypass 2005), Orthopedic (Back surgery, right leg suzette placed) and Other (Gastric bypass 2005, multiple hernia repairs, Lung Hernia)
Social History
Tobacco: Former smoker
Alcohol: Former
Drug: None
Personal:
Living: with family
Employment: Disabled
Family History
Family History: Other (Noncontributory)
Phy Exam
<Efren Molina PA-C - Last Filed: 08/16/24 19:45>
Physical Exam
Physical Exam:
.
Course
<Efren Molina PA-C - Last Filed: 08/16/24 19:45>
Orders/Labs/Results
Orders:
Orders
08/16/24 17:32
CT Cervical Spine W/o Iv Contr Urgent
Comment:
Reason For Exam: trauma
CT Head W/o Iv Contrast Urgent
Comment:
Reason For Exam: trauma
Chest/Abd/Pelvis w Contrast CT [CT Chest/abd/pel W Iv Cont] Urgent
Comment:
Reason For Exam: trauma
Tetanus/Diphth/Acelpertussis [Adacel] 0.5 ml IM .ONCE ONE
08/16/24 17:39
Complete Blood Count/With Diff Urgent
Comprehensive Metabolic Panel Urgent
Prothrombin Time Urgent
08/16/24 19:13
Acetaminophen [Tylenol] 1,000 mg PO NOW STA
Lidocaine [Lidocaine 4% Patch] 1 patch TOPICAL NOW STA
Apply Lidocaine patch(s) to:: R ribs
Rx Incentive Spirometry [RESP] Urgent
Frequency: q1h while awake
Abnormal Lab Results
08/16/24
17:39
RBC 3.59 L 10^6/uL
(4.70-6.10)
Hgb 11.8 L g/dL
(13.0-18.0)
Hct 35.1 L %
(39.0-52.0)
MCV 97.8 H fL
(80.0-94.0)
MCH 32.9 H pg
(27.0-31.0)
RDW 15.9 H %
(11.5-14.5)
Absolute Monos (auto) 1.0 H 10^3/uL
(0.1-0.6)
Lymphocytes % 17.6 L %
(20.5-51.1)
Monocytes % 10.5 H %
(1.7-9.3)
PT 15.0 H Sec
(11.4-14.6)
Glucose 100 H mg/dl
(70-99)
08/16/24 17:39
08/16/24 17:39
Vital Signs
Initial and Last Documented VS:
Initial Vital Signs
Pulse Resp BP Pulse Ox
73 18 170/83 97
08/16/24 16:03 08/16/24 16:03 08/16/24 16:03 08/16/24 16:03
Last Documented Vital Signs
Pulse Resp BP Pulse Ox
66 13 148/77 94
08/16/24 18:15 08/16/24 18:15 08/16/24 18:00 08/16/24 18:15
<Svetlana Shelley MD - Last Filed: 08/16/24 20:20>
Orders/Labs/Results
Orders:
Orders
08/16/24 17:32
CT Cervical Spine W/o Iv Contr Urgent
Comment:
Reason For Exam: trauma
CT Head W/o Iv Contrast Urgent
Comment:
Reason For Exam: trauma
Chest/Abd/Pelvis w Contrast CT [CT Chest/abd/pel W Iv Cont] Urgent
Comment:
Reason For Exam: trauma
Tetanus/Diphth/Acelpertussis [Adacel] 0.5 ml IM .ONCE ONE
08/16/24 17:39
Complete Blood Count/With Diff Urgent
Comprehensive Metabolic Panel Urgent
Prothrombin Time Urgent
08/16/24 19:13
Acetaminophen [Tylenol] 1,000 mg PO NOW STA
Lidocaine [Lidocaine 4% Patch] 1 patch TOPICAL NOW STA
Apply Lidocaine patch(s) to:: R ribs
Rx Incentive Spirometry [RESP] Urgent
Frequency: q1h while awake
Abnormal Lab Results
08/16/24
17:39
RBC 3.59 L 10^6/uL
(4.70-6.10)
Hgb 11.8 L g/dL
(13.0-18.0)
Hct 35.1 L %
(39.0-52.0)
MCV 97.8 H fL
(80.0-94.0)
MCH 32.9 H pg
(27.0-31.0)
RDW 15.9 H %
(11.5-14.5)
Absolute Monos (auto) 1.0 H 10^3/uL
(0.1-0.6)
Lymphocytes % 17.6 L %
(20.5-51.1)
Monocytes % 10.5 H %
(1.7-9.3)
PT 15.0 H Sec
(11.4-14.6)
Glucose 100 H mg/dl
(70-99)
08/16/24 17:39
08/16/24 17:39
Vital Signs
Initial and Last Documented VS:
Initial Vital Signs
Pulse Resp BP Pulse Ox
73 18 170/83 97
08/16/24 16:03 08/16/24 16:03 08/16/24 16:03 08/16/24 16:03
Last Documented Vital Signs
Pulse Resp BP Pulse Ox
66 13 148/77 94
08/16/24 18:15 08/16/24 18:15 08/16/24 18:00 08/16/24 18:15
<Efren Molina PA-C - Last Filed: 08/16/24 19:45>
*Pulse Oximetry
Patient hypoxic: no
*Critical Care Note
Total Time (30-74mins, 75-104mins- exclusive of procedures): 45 minutes
comment:
Critical care time: 45 minutes
Critical care time was exclusive of: Separately billable procedures, treating other patients, and teaching time
Critical care was necessary to treat or prevent imminent or life-threatening deterioration of the following conditions: Polytrauma, rib fractures
Critical care time spent personally by me on the following activities:
[x] Review of old charts
[x] Obtaining history from patient or surrogate
[x] Ordering and review of the laboratory studies
[x] Ordering and review of radiographic studies
[x] Ordering and performing treatments and interventions
[x] Patient patient's response to treatment
[x] Development of treatment plan with patient or surrogate
ED Attending Note
<Efren Molina PA-C - Last Filed: 08/16/24 19:45>
-
Portions of this chart may have been created with voice recognition software.� Occasional wrong word or��sound alike� substitutions may have occurred due to the inherent limitations of voice recognition software.
<Svetlana Shelley MD - Last Filed: 08/16/24 20:20>
ED Attending Note
Patient seen and examined by attending physician: Yes
I performed the substantive portion of visit, reviewed & personally made and approve the management plan that is documented in note by myself or JULIO.: Yes
ED Attending Note:
64 yr old amle who fell whil [place] approx 7 feet, now with R sided lateral/post thorax pain, particularly with cough/movement/deep breathe. On DOAC. No head inj/headche/neck pain/numb/tingling/abd pain/v. On exam, pt comfortable at rest but
obvious discomfort with movement, especct at R lat/post thorax area. Mult rib fxs noted, hemodynam stable, respt status stable, tx to trauma [facility].
Discharge Plan
Departure
Patient Disposition: Acute Care Hospital
Date of Disposition: 08/16/24
Time of Disposition: 19:27
Discharge Problem:
Multiple fractures of ribs, Contusion of lung
Prescriptions:
No Action
montelukast 10 MG tablet
10 mg PO QPM
theophylline 300 MG tablet extended release 12 hr
300 mg PO QPM
lamotrigine 100 MG tablet
300 mg PO BID
prazosin 1 MG capsule
1 mg PO TID
levothyroxine 125 MCG tablet
125 mcg PO DAILY AT 0700
sertraline 100 MG tablet
200 mg PO DAILY
quetiapine [Seroquel] 400 MG tablet
800 mg PO HS
rosuvastatin 10 MG tablet
10 mg PO QPM
trazodone 50 mg Tablet
50 mg PO QPM
aspirin 81 mg Tablet,Delayed Release (Dr/Ec)
81 mg PO DAILY
ferrous sulfate 325 mg (65 mg iron) Tablet
325 mg PO BID
buspirone 10 mg Tablet
20 mg PO TID
nitroglycerin 0.4 mg Tablet, Sublingual
0.4 mg SUBLINGUAL [id number] PRN (Reason: chest pain)
lisinopril 5 mg Tablet
5 mg PO DAILY
albuterol sulfate [Ventolin HFA] 90 mcg/actuation Hfa Aerosol Inhaler
2 puff INHALATION R Q4HPRN PRN (Reason: sob)
bupropion HCl [Wellbutrin XL] 300 mg Tablet Extended Release 24 Hr
300 mg PO DAILY
budesonide-formoterol [Symbicort] 160-4.5 mcg/actuation Hfa Aerosol Inhaler
2 puff INHALATION R BID
guaifenesin [Mucinex] 1,200 mg Tablet Extended Release 12hr
1,200 mg PO DAILY
cholecalciferol (vitamin D3) [Vitamin D3] 50 mcg (2,000 unit) Tablet
50 mcg PO DAILY
Hhknrikyc-Ycxrxmqhob-Cheewzxex
0 mcg epidural .VIA PUMP
Patient Comments:
01/25/2023: 12/27/22 pump gets filled every six weeks at [facility] in [place] . Patient is unaware of dose.
acyclovir 5 % ointment
1 applic topical 5/D PRN (Reason: cold sores)
Rx Instructions:
take for 5 days
acetaminophen 325 mg Tablet
650 mg PO Q4HPRN PRN (Reason: mild pain /fever >100.4) Qty: 1 0RF
Rx Instructions:
buy over the counter
pantoprazole 40 mg Tablet,Delayed Release (Dr/Ec)
40 mg PO DAILY Qty: 30 0RF
Rx Instructions:
while on high dose of steroids
prednisone 10 mg tablet
10 mg PO DIRECTED Qty: 60 0RF
Rx Instructions:
50mgz daiy*1 week
taper by 10mg every week
till you come down to 20mg daily
prednisone 50 mg tablet
50 mg PO DAILY Qty: 5 0RF
Referrals:
NONE,* [Active, Internal Medicine]
Hospital Transfer
Other hospital: [facility]
I certify that the patient requires transfer: Yes
Discussed case with accepting physician: Scaff
Reason for transfer: higher level of care
Interventions
Interventions:
*Risk Screen - Suicide Last Done: 08/16/24 16:03
*General Assessment Last Done: 08/16/24 16:03
*Neglect/Abuse Screening Last Done: 08/16/24 16:03
*ED- Fall Risk Assessment Last Done: 08/16/24 16:03
*ED COVID-19 Vaccine History Last Done: 08/16/24 16:03
ED-Musculoskeletal Assessment Last Done: 08/16/24 17:52
ED- Neurological Assessment Last Done: 08/16/24 17:52
ED-Skin Assessment Last Done: 08/16/24 17:52
Discharge Date and Time
Print Language: SINHALA
[2024-08-16 17:49] LABS: % Basophils 0.6 % (0-2); % Eosinophils 1.1 % (0-6); % Immature Granulocytes 0.3 % (0-0.5); % Lymphocytes 17.6 % (20.5-51.1); % Monocytes 10.5 % (1.7-9.3); % Neutrophils 69.9 % (42.2-75.2); Absolute Basophils 0.1 10^3/uL (0-0.2); Absolute Eosinophils 0.1 10^3/uL (0-0.7); Absolute Lymphocytes 1.6 10^3/uL (1.2-3.4); Absolute Neutrophils 6.4 10^3/uL (1.4-6.5); Hematocrit 35.1 % (39.0-52.0); Hemoglobin 11.8 g/dL (13.0-18.0); Mean Corp Hgb Conc. 33.6 g/dL (33.0-37.0); Mean Corpuscular Hgb 32.9 pg (27.0-31.0); Mean Corpuscular Volume 97.8 fL (80.0-94.0); Mean Platelet Volume 10.2 fL (7.4-10.4); Nucleated Red Blood Cells % 0 % (-); Platelet Count 191 10^3/uL (130-400); Red Blood Cell Count 3.59 10^6/uL (4.70-6.10); Red Cell Dist. Width 15.9 % (11.5-14.5); White Blood Cell Count 9.1 10^3/uL (4.8-10.8)
[2024-08-16 17:54] LABS: INR 1.15
[2024-08-16 18:00] VITALS: BP 148/77
[2024-08-16 18:04] LABS: ALT (SGPT) 16 U/L (0-50); AST (SGOT) 24 U/L (17-59); Alkaline Phosphatase 76 U/L (38-126); Blood Urea Nitrogen 14 mg/dl (9-20); Calcium 9.5 mg/dl (8.4-10.2); Carbon Dioxide 30 mmol/L (22-30); Chloride 106 mmol/L (98-107); Estimated Creatinine Clearance 105 ml/min; Glucose 100 mg/dl (70-99); Potassium 3.8 mmol/L (3.5-5.1); Sodium 140 mmol/L (135-145); Total Bilirubin 0.8 mg/dl (0.2-1.3); Total Protein 6.3 g/dl (6.3-8.2); eGFR > 60.00
[2024-08-16] MEDS: ADACEL 0.5 ML IM (18:07)
--- NOTE | 2024-08-16 19:30 | EDRN ---
Report received, introduced myself to patient and , patient is aware he is being transferred to [place], currently ETA is for 2044 for departure, cleaned patients wounds and placed Polysporin on the wounds and a non-adherent dressing for
patient, no further complaints at this time, call coleman in reach.
[2024-08-16] MEDS: LIDOCAINE 4% PATCH 1 PATCH TOPICAL (19:41)
[2024-08-16] MEDS: TYLENOL 1000 MG PO (19:41)
[2024-08-16 20:21] VITALS: BP 148/97
== END 2024-08-16 21:34 | disposition short-term general hospital (02) ==
LOC: EMR 15:57
PROVIDERS: Physician Assistant; EMERGENCY PHYSICIAN Emergency Medicine; FAMILY PHYSICIAN Nurse Practitioner Family
DX: S22.41XA Multiple fractures of ribs, right side, initial encounter for closed fracture (principal); S27.321A Contusion of lung, unilateral, initial encounter; S27.0XXA Traumatic pneumothorax, initial encounter; S51.811A Laceration without foreign body of right forearm, initial encounter; S41.111A Laceration without foreign body of right upper arm, initial encounter; S81.812A Laceration without foreign body, left lower leg, initial encounter; W15.XXXA Fall from cliff, initial encounter; J44.89 Other specified chronic obstructive pulmonary disease; I48.91 Unspecified atrial fibrillation; Z79.01 Long term (current) use of anticoagulants; Z87.891 Personal history of nicotine dependence; Z98.84 Bariatric surgery status; E03.9 Hypothyroidism, unspecified; G47.33 Obstructive sleep apnea (adult) (pediatric); I10 Essential (primary) hypertension; S20.211A Contusion of right front wall of thorax, initial encounter; Z23 Encounter for immunization
CPT/HCPCS: 90471; 99291; 70450; 71260; 72125; 74177; 80053; 85025; 85610; 90715; Q9967

== ENCOUNTER → 2025-01-20 08:05 | Outpatient (REF) | payer OTHER, SELFPAY | LOC: HWRAD 08:05 | PROVIDERS: ATTENDING PHYSICIAN Student in an Organized Health Care Education/Training Program; FAMILY PHYSICIAN Nurse Practitioner Family | DX: M54.9 Dorsalgia, unspecified (principal) | CPT/HCPCS: 72128; 72131 ==